=== PATIENT | female | born 1995 | race Caucasian/White ===

== ENCOUNTER 2019-04-17 20:32 | Emergency (ER) | payer BC ==
[~2019-04-17] VITALS: Ht 167.6 cm; Wt 55.3 kg
[2019-04-17 20:49] VITALS: Ht 167.6 cm; Wt 55.3 kg
[2019-04-17 23:00] VITALS: BP 119/76
== END 2019-04-17 23:11 | disposition home or self-care (01) ==
LOC: ED 20:32
DX: N39.0 Urinary tract infection, site not specified (principal); Z88.0 Allergy status to penicillin